=== PATIENT | male | born 1960 | race African-American/Black ===

== ENCOUNTER 2023-03-22 15:12 | Emergency (ER) | payer MEDICAID ==
[~2023-03-22] VITALS: Ht 177.8 cm; Wt 90.0 kg
[2023-03-22 15:22] VITALS: O2SAT 100
[2023-03-22] MEDS ORDERED: ACETAMINOPHEN 325MG TABLET PO STA (15:27)
[2023-03-22 15:57] LABS: BASOPHILS % 0.6 % (0.0-2.0); EOSINOPHILS % 0.7 % (0.0-5.0); HEMATOCRIT. 41.8 % (42.0-52.0); LYMPHOCYTES % 18.5 % (20.0-50.0); MEAN CORPUSCULAR HEMOGLOBIN 28.5 pg (28.0-32.0); MEAN CORPUSCULAR HGB CONC 33.6 g/dL (31.0-37.0); MEAN PLATELET VOLUME 7.5 fl (7.4-10.4); MONOCYTES % 5.6 % (2.0-8.0); NEUTROPHILS % 74.6 % (40.0-76.0); PLATELET 208 x1000/uL (130-400); RED BLOOD CELL COUNT 4.92 mill/uL (4.7-6.1); RED CELL DISTRIBUTION WIDTH 16.8 % (11.6-14.6); WHITE BLOOD COUNT 7.8 x1000/uL (4.5-11.0)
[2023-03-22 16:22] LABS: ALANINE AMINOTRANSFERASE 16 IU/L (10-49); ASPARTATE AMINOTRANSFERASE 34 IU/L (<34); BILIRUBIN TOTAL 0.7 mg/dL (0.1-1.0); CARBON DIOXIDE 27 mEq/L (21-32); CHLORIDE 98 mEq/L (98-107); CREATININE 0.9 mg/dL (0.6-1.3); GLUCOSE 102 mg/dL (70-105); POTASSIUM 3.6 mEq/L (3.5-5.1); PROTEIN TOTAL 7.6 g/dL (6.0-8.3); SODIUM 133 mEq/L (136-145); UREA NITROGEN BLOOD 9 mg/dL (9-23)
[2023-03-22] MEDS ORDERED: BENZ200C52 MT (17:25)
[2023-03-22 17:45] VITALS: BP 135/96; PULSE 89; RESP 17; TEMP 99.1
== END 2023-03-22 17:48 | disposition home or self-care (01) ==
LOC: ER 15:12
DX: B34.8 Other viral infections of unspecified site (principal); R05.9 Cough, unspecified; J44.9 Chronic obstructive pulmonary disease, unspecified; I10 Essential (primary) hypertension; Z20.822 Contact with and (suspected) exposure to COVID-19
CPT/HCPCS: 99284; 71045; 87426; 80053; 85025; 87804 ×2; 36415; C9803

== ENCOUNTER 2023-12-13 00:40 | Inpatient (IN) | payer MEDICAID ==
[~2023-12-13] VITALS: Ht 182.9 cm; Wt 73.9 kg
[~2023-12-13 00:40] MED LIST: BENZ200C52 MT
[2023-12-13 01:32] LABS: BASOPHILS % 0.5 % (0.0-2.0); EOSINOPHILS % 3.6 % (0.0-5.0); HEMATOCRIT. 38.4 % (42.0-52.0); HEMOGLOBIN. 12.7 g/dL (14.0-18.0); LYMPHOCYTES % 20.2 % (20.0-50.0); MEAN CORPUSCULAR HEMOGLOBIN 29.7 pg (28.0-32.0); MEAN CORPUSCULAR HGB CONC 33.1 g/dL (31.0-37.0); MEAN CORPUSCULAR VOLUME 89.7 fL (80.0-94.0); MEAN PLATELET VOLUME 7.4 fl (7.4-10.4); MONOCYTES % 4.4 % (2.0-8.0); NEUTROPHILS % 71.3 % (40.0-76.0); PLATELET 212 x1000/uL (130-400); RED BLOOD CELL COUNT 4.28 mill/uL (4.7-6.1); RED CELL DISTRIBUTION WIDTH 16.3 % (11.6-14.6); WHITE BLOOD COUNT 9.5 x1000/uL (4.5-11.0)
[2023-12-13 01:46] LABS: CHLORIDE 112 mEq/L (98-107); POTASSIUM 3.8 mEq/L (3.5-5.1); SODIUM 142 mEq/L (136-145)
[2023-12-13 01:47] LABS: CALCIUM 8.6 mg/dL (8.7-10.4); CARBON DIOXIDE 24 mEq/L (21-32)
[2023-12-13 01:52] LABS: CREATININE 1.2 mg/dL (0.6-1.3); ETHANOL BLOOD < 10 mg/dL (<10); GLUCOSE 110 mg/dL (70-105); TROPONIN I HIGH SENSITIVITY 18 ng/L (3.0-53); UREA NITROGEN BLOOD 10 mg/dL (9-23)
[2023-12-13 02:36] LABS: INR 2.9; PARTIAL THROMBOPLASTIN TIME 37.6 sec (23.4-31.0); PROTHROMBIN TIME 29.7 sec (9.6-11.0)
[2023-12-13] MEDS: SODIUM CHLORIDE 0.9% 250 ML IV NR (04:47)
[2023-12-13] MEDS ORDERED: ACETAMINOPHEN 325MG TABLET PO PRN ×2 (05:00)
[2023-12-13] MEDS ORDERED: MAGNESIUM/ALUMINUM HYDROXIDE/SIMETHICONE 30ML UDC PO PRN (05:00)
[2023-12-13] MEDS ORDERED: ONDANSETRON HCL 4MG/2ML INJ IV PRN (05:00)
[2023-12-13] MEDS ORDERED: LORAZEPAM 0.5MG TABLET PO PRN (05:00)
[2023-12-13] MEDS ORDERED: GUAIFENESIN 200MG/10ML SUGAR FREE UDC PO PRN (05:00)
[2023-12-13] MEDS ORDERED: IPRATROPIUM/ALBUTEROL 0.5-3(2.5)MG/3ML NEB HHN PRN (06:15)
[2023-12-13 06:22] LABS: CLARITY URINE CLEAR (CLEAR); COLOR URINE YELLOW (YELLOW); GLUCOSE URINE NEGATIVE (NEGATIVE); KETONES URINE NEGATIVE (NEGATIVE); LEUKOCYTE ESTERASE URINE NEGATIVE (NEGATIVE); NITRITE URINE NEGATIVE (NEGATIVE); OCCULT BLOOD URINE NEGATIVE (NEGATIVE); PROTEIN URINE NEGATIVE (NEGATIVE); SPECIFIC GRAVITY URINE 1.015 (1.005-1.030)
[2023-12-13] MEDS: ASPIRIN 81MG TABLET PO NR (06:25)
[2023-12-13 06:39] LABS: BACTERIA URINE TRACE; RBC URINE 0-2 /hpf (0-2); SQUAMOUS EPITHELIAL CELL URINE FEW /lpf (RARE/1+)
[2023-12-13 06:47] LABS: *AMPHETAMINES SCREEN URINE NEGATIVE (NEGATIVE); *BARBITURATES SCREEN URINE NEGATIVE (NEGATIVE); *BENZODIAZEPINES SCREEN URINE NEGATIVE (NEGATIVE); *COCAINE SCREEN URINE NEGATIVE (NEGATIVE); CANNABINOID URINE SCREEN PRESUMPTIVE POSITIVE (NEGATIVE); ECSTASY MDMA SCREEN URINE NEGATIVE (NEGATIVE); METHADONE URINE SCREEN NEGATIVE (NEGATIVE); OPIATES URINE SCREEN NEGATIVE (NEGATIVE); PHENCYCLIDINE URINE SCREEN NEGATIVE (NEGATIVE)
[2023-12-13] MEDS: PANTOPRAZOLE SODIUM 40 MG/VIAL IV SCH (09:50)
[2023-12-13] MEDS: SODIUM CHLORIDE 0.9% 1,000 ML IV SCH (15:16)
[2023-12-13 17:15] VITALS: BP 141/87; PULSE 45; RESP 18; TEMP 36.61404; O2SAT 100
[2023-12-13] MEDS ORDERED: WARFARIN SODIUM 7.5MG TABLET PO NR (18:00)
[2023-12-13 20:00] VITALS: BP 125/67; PULSE 53; RESP 18; TEMP 36.50292; O2SAT 98
[2023-12-13 20:16] VITALS: BP 125/67; PULSE 53; RESP 18; TEMP 36.5292
[2023-12-13] MEDS: ATORVASTATIN CALCIUM 40MG TABLET PO SCH (21:40)
[2023-12-14] VITALS: BP 138/86; PULSE 53; RESP 18; TEMP 36.114; O2SAT 95
[2023-12-14 04:00] VITALS: BP 117/78; PULSE 70; RESP 18; TEMP 36.6696; O2SAT 97
[2023-12-14 07:16] LABS: CHLORIDE 108 mEq/L (98-107); SODIUM 139 mEq/L (136-145)
[2023-12-14 07:17] LABS: CALCIUM 8.6 mg/dL (8.7-10.4); CARBON DIOXIDE 26 mEq/L (21-32); PROTHROMBIN TIME 43.4 sec (9.6-11.0)
[2023-12-14 07:18] LABS: T4 FREE 1.08 ng/dL (0.89-1.76)
[2023-12-14 07:19] LABS: THYROID STIMULATING HORMONE 0.61 uIU/mL (0.55-4.78)
[2023-12-14 07:21] LABS: TRIGLYCERIDE 122 mg/dL (0-150)
[2023-12-14 07:22] LABS: GLUCOSE 97 mg/dL (70-105)
[2023-12-14 07:23] LABS: ALANINE AMINOTRANSFERASE 10 IU/L (10-49); LDL CHOLESTEROL 97 mg/dL (5-100); PROTEIN TOTAL 6.1 g/dL (6.0-8.3)
[2023-12-14 07:24] LABS: ALBUMIN 3.5 g/dL (3.2-4.8); ASPARTATE AMINOTRANSFERASE 14 IU/L (<34); BILIRUBIN DIRECT 0.1 mg/dL (<=3.0); CHOLESTEROL 161 mg/dL (<200); HDL CHOLESTEROL 32 mg/dL (>55); PHOSPHORUS 2.2 mg/dL (2.5-4.9)
[2023-12-14 07:25] LABS: BILIRUBIN TOTAL 0.5 mg/dL (0.1-1.0)
[2023-12-14 07:27] LABS: BASOPHILS % 0.4 % (0.0-2.0); EOSINOPHILS % 4.1 % (0.0-5.0); HEMOGLOBIN. 12.5 g/dL (14.0-18.0); LYMPHOCYTES % 29.6 % (20.0-50.0); MEAN CORPUSCULAR HEMOGLOBIN 30.2 pg (28.0-32.0); MEAN CORPUSCULAR HGB CONC 33.9 g/dL (31.0-37.0); MEAN CORPUSCULAR VOLUME 89.2 fL (80.0-94.0); MEAN PLATELET VOLUME 8.1 fl (7.4-10.4); MONOCYTES % 6.7 % (2.0-8.0); NEUTROPHILS % 59.2 % (40.0-76.0); PLATELET 191 x1000/uL (130-400); RED BLOOD CELL COUNT 4.15 mill/uL (4.7-6.1); RED CELL DISTRIBUTION WIDTH 16.7 % (11.6-14.6); WHITE BLOOD COUNT 9.4 x1000/uL (4.5-11.0)
[2023-12-14 07:48] LABS: UREA NITROGEN BLOOD < 5 mg/dL (9-23)
[2023-12-14 07:59] LABS: INR 4.3
[2023-12-14 08:00] VITALS: BP 143/83; PULSE 41; RESP 17; TEMP 37.00296; O2SAT 98
[2023-12-14] MEDS: DOCUSATE SODIUM 100MG CAPSULE PO PRN (10:23)
[2023-12-14 12:00] VITALS: BP 126/81; PULSE 47; RESP 17; TEMP 37.00296; O2SAT 98
[2023-12-14 12:53] VITALS: BP 126/81; PULSE 47; TEMP 98.6; O2SAT 98
== END 2023-12-14 14:57 | disposition home or self-care (01) | DRG 249 ==
LOC: ER 00:40 → 5WST 02:06 → 8WST 16:52
PROVIDERS: ADMIT Internal Medicine; ATTEND Internal Medicine
DX: E86.0 Dehydration (principal); K52.9 Noninfective gastroenteritis and colitis, unspecified; N17.0 Acute kidney failure with tubular necrosis; I50.9 Heart failure, unspecified; I11.0 Hypertensive heart disease with heart failure; E11.9 Type 2 diabetes mellitus without complications; E78.00 Pure hypercholesterolemia, unspecified; J44.9 Chronic obstructive pulmonary disease, unspecified; I25.2 Old myocardial infarction; Z79.01 Long term (current) use of anticoagulants; Z79.82 Long term (current) use of aspirin; Z95.2 Presence of prosthetic heart valve; Z95.5 Presence of coronary angioplasty implant and graft
CPT/HCPCS: 36415; 71045; 80048; 80061; 80076; 80305; 80320; 81003; 82270; 82962; 83036; 83735; 83880; 84100; 84439; 84443; 84484; 85025; 87015; 87045; 87427; 87449; 89055; 93005; 93970; 99285; J2470; J7030; G0480